=== PATIENT | male | born 1980 | race Caucasian/White ===

== ENCOUNTER 2018-07-06 20:32 | Emergency (ER) | payer OTHER, SELFPAY ==
[2018-07-06 20:46] VITALS: BP 166/108; RESP 18; TEMP 36.7; O2SAT 98
[2018-07-06 20:54] LABS: POC Glucose,Bedside 101 (70-110)
[2018-07-06 21:12] VITALS: BMI 24.3
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
[2018-07-06 22:04] VITALS: BP 166/88; PULSE 87; RESP 18; O2SAT 98
[2018-07-06 23:02] VITALS: BP 166/77; PULSE 87; RESP 16; TEMP 36.7; O2SAT 99
== END 2018-07-06 23:09 | disposition home or self-care (01) ==
PROVIDERS: Emergency Provider Emergency Medicine
DX: S00.03XA Contusion of scalp, initial encounter (principal); S50.01XA Contusion of right elbow, initial encounter; S51.011A Laceration without foreign body of right elbow, initial encounter; V48.1XXA Car passenger injured in noncollision transport accident in nontraffic accident, initial encounter; Y92.488 Other paved roadways as the place of occurrence of the external cause; Z23 Encounter for immunization
CPT/HCPCS: 12002; 70450; 71045; 72170; 73080; 82962; 90471; 90714; 99281